=== PATIENT | male | born 1990 | race Caucasian/White ===

== ENCOUNTER 2022-12-03 10:29 | Outpatient (CLI) | payer MEDICAID, SELFPAY ==
--- NOTE | 2022-12-03 09:15 | DI.RAD_ITS ---
Exam(s) XR HIP LT COMPLETE AP PELVIS EXAM: XR HIP LT COMPLETE AP PELVIS CLINICAL HISTORY: LEFT HIP PAIN. TECHNIQUE: 2D digital imaging was performed. COMPARISON: Prior outside images of June 2022. FINDINGS: 3 views There is no evidence of fracture nor joint space narrowing in the left hip. However, there is an avu lsion fragment off the anterosuperior iliac spine as well as fracture of the lateral half of the left iliac crest, these findings evident on the prior outside images of June 2022. No new additional frac tures evident. IMPRESSION: 1. No acute left hip findings. 2. Again noted is fracture of the left iliac crest lateral half and anterior superior iliac spine avu lsion injury, these findings evident on prior outside images of 06/13/2022. DATA REPOSITORY: RADIATION DOSE DELIVERED:
== END 2022-12-03 10:30 | disposition home or self-care (01) ==
LOC: DIORS 10:30
PROVIDERS: Visit Provider Physician Assistant
DX: S32.312A Displaced avulsion fracture of left ilium, initial encounter for closed fracture; X58.XXXA Exposure to other specified factors, initial encounter
CPT/HCPCS: 73502

== ENCOUNTER → 2022-12-24 00:32 | Outpatient (CLI) | payer MEDICAID, SELFPAY ==
--- NOTE | 2022-12-24 07:30 | DI.CT_ITS ---
Exam(s) CT PELVIC WO EXAM: CT PELVIC WO CLINICAL HISTORY: PAIN,fx lt iliac crest, s32.302a. TECHNIQUE: Imaging Protocol: Axial computed tomography images with coronal and sagittal reformatted images were created and reviewed CONTRAST MATERIAL: Intravenous: none Oral: None COMPARISON: CR XR HIP LT COMPLETE AP PELVIS from 12/03/2022 FINDING: PELVIS: OSSEOUS/MUSCLES: There is an asymmetric deformity in the lateral aspect of the left iliac crest which has appearance of a healing-healed comminuted fracture site at this level. This corresponds to the finding on recent plain films. Involves iliac crest as well as the anterior superior iliac spine. N o significant osseous lesions at this level nor elsewhere in the bones of the pelvis. The musculatur e including quadriceps and gluteus musculature appear intact and symmetrical to the opposite side wit hout evidence of atrophy. Intrapelvic adjacent iliacus and iliopsoas muscles also appear normal. Sacroiliac joints appear unremarkable.Hips appear unremarkable. Pubic rami unremarkable. ANTERIOR ABDOMINAL WALL/GI:No evidence of significant anterior abdominal wall nor inguinal hernia in the pelvis evident.No obvious bowel obstruction. No evidence of appendicitis.No evidence of acute si gmoid diverticulitis.No free fluid in the pelvis. LYMPH NODES: There is no intrapelvic nor inguinal adenopathy. URINARY BLADDER: No calculi nor obvious masses evident REPRODUCTIVE: Prostate and seminal vesicles appear unremarkable.. IMPRESSION: 1. Prominent healing-healed fracture deformity anterior superior iliac spine level in left side of th e pelvis, as seen on recent plain films. There is no asymmetry of the musculature evident and there is no obvious muscle atrophy of the muscle groups in this region. 2. No other significant incidental findings in the pelvis. RADIATION DOSE DELIVERED: Total DLP DATA REPOSITORY: All CT scans at this facility are submitted to the National Radiology Data Registry (NRDR) Dose Index Registry (DIR) with the [employer] ([employer]). RADIATION OPTIMIZATION: All CT scans at this facility use at least one of these dose optimization te chniques: automated exposure control; mA and/or kV adjustment per patient size (includes targeted exa ms where dose is matched to clinical indication); or iterative reconstruction.
== END ==
PROVIDERS: Visit Provider Physician Assistant
DX: S32.315A Nondisplaced avulsion fracture of left ilium, initial encounter for closed fracture (principal); X58.XXXA Exposure to other specified factors, initial encounter
CPT/HCPCS: 72192